=== PATIENT | female | born 1995 | race Caucasian/White ===

== ENCOUNTER 2016-07-28 15:25 | Emergency (ER) | payer OTHER ==
[~2016-07-28] VITALS: Ht 152.4 cm; Wt 64.6 kg
[2016-07-28 15:34] VITALS: BP 122/72
[2016-07-28] MEDS ORDERED: NACL 0.9% 500 ML IV ONE (15:47)
[2016-07-28] MEDS ORDERED: ONDANSETRON 4 MG/2 ML VIAL IVP ONE (15:50)
[2016-07-28] MEDS ORDERED: KETOROLAC 30 MG/ML VIAL IVP ONE (15:50)
--- NOTE | 2016-07-28 15:50 | NUR ---
Pt taken to bed 8. at bedside.
--- NOTE | 2016-07-28 15:52 | NUR ---
20/F presents to ED with c/o right upper abdominal pain that started today. Pt also c/o nausea, denies vomiting. Patient is crying,moaning, restless and guarding. Pt grabbing at her abdomen and crying in pain. Pt's states he took her ugent care today and had blood drawn and was discharged. Pt denies receiving any pain medication. Pt states she was referred to get an US done. Pt is 2 months post . Patient is AOX4, w/c assisted to bed 8. Pt left side lying. VSS. at bedside.
--- NOTE | 2016-07-28 16:02 | NUR ---
Ultrasound at bedside.
--- NOTE | 2016-07-28 16:07 | NUR ---
Pt is much more calm, pt no longer moaning or crying. Pt states she is feeling better. US at bedside. IV fluids running with no signs of infiltration, no redness, no swelling noted.
--- NOTE | 2016-07-28 16:17 | NUR ---
Dr. Small evaluating patient at bedside.
[2016-07-28] MEDS ORDERED: fentaNYL 0.05 MG/ML VIAL IVP ONE (16:25)
--- NOTE | 2016-07-28 16:45 | NUR ---
Patient appears to be resting comfortably in bed. Vital Signs within normal limits. Respirations even and unlabored.
--- NOTE | 2016-07-28 16:56 | NUR ---
IV removed, catheter intact and site benign. Applied folded 4x4 gauze and tape to stop bleeding.
--- NOTE | 2016-07-28 16:59 | NUR ---
Patient discharged with v/s stable. Written and verbal after care instructions given and explained. Patient alert, oriented and verbalized understanding of instructions. Ambulatory with steady gait. All questions addressed prior to discharge. ID band removed. Patient advised to follow up with PMD. Rx of ZOFRAN 4MG ODT AND NORCO 5/325MG TAB given. Patient educated on indication of medication including possible reaction and side effects. Opportunity to ask questions provided and answered.
[2016-07-28 17:00] VITALS: BP 108/54
== END 2016-07-28 16:59 | disposition home or self-care (01) ==
LOC: MED 15:25
DX: K80.20 Calculus of gallbladder without cholecystitis without obstruction (principal); R03.0 Elevated blood-pressure reading, without diagnosis of hypertension
CPT/HCPCS: 36415; 76705; 80053; 81002; 81025; 83690; 85025; 96361; 96374; 96375; 99285; J1885; J2405; J3010; J7030; Q0092

== ENCOUNTER 2021-10-04 03:13 | Emergency (ER) | payer OTHER ==
[~2021-10-04] VITALS: Ht 152.4 cm; Wt 81.4 kg
[2021-10-04 03:23] VITALS: BP 118/66
--- NOTE | 2021-10-04 03:28 | NUR ---
pt ambulatory to bed 05
--- NOTE | 2021-10-04 03:40 | NUR ---
25 Y/O F BIB SELF FOR BILAT SORE THROAT FOR 2/3 DAYS. THROAT FEELS DRY AND SCRATCHY. PT STATES BILAT EAR PAIN 4/10 PAIN. DENIES N/V/D; DENIES EAR DISCHARGE AND BLOOD IN THROAT. PT TOOK HALLS LOZENGES FOR RELIEF. PT STATES NO COUGH . SKIN IS PINK/WARM/DRY; AAOX4 WITH EVEN AND STEADY GAIT; LUNGS CLEAR BL; HR EVEN AND REGULAR; PT DENIES ANY FEVER, CP, SOB. PMH: DENIES ALLERGIES: NKA
--- NOTE | 2021-10-04 04:24 | NUR ---
Dr. Pacheco examining patient.
[2021-10-04 04:44] VITALS: BP 118/66
--- NOTE | 2021-10-04 04:44 | NUR ---
VERBAL DC BY
--- NOTE | 2021-10-04 04:44 | NUR ---
The patient's care was reviewed and supervised by Aidee King RN, RN.
== END 2021-10-04 04:44 | disposition home or self-care (01) ==
LOC: MED 03:13
DX: J02.9 Acute pharyngitis, unspecified (principal); H92.02 Otalgia, left ear
CPT/HCPCS: 99281

== ENCOUNTER 2022-01-06 03:35 | Emergency (ER) | payer OTHER ==
[~2022-01-06] VITALS: Ht 152.4 cm; Wt 81.6 kg
[2022-01-06 03:45] VITALS: BP 116/65
--- NOTE | 2022-01-06 03:52 | NUR ---
PT TAKEN TO BED 3
--- NOTE | 2022-01-06 04:02 | NUR ---
Dr. Painting examining patient.
[2022-01-06] MEDS ORDERED: SILVER SULFADIAZINE 1% 50 GM JAR TP ONE (04:10)
[2022-01-06] MEDS ORDERED: BACI-352 TP (04:47)
[2022-01-06] MEDS ORDERED: NAPR-54 PO (04:47)
[2022-01-06 04:59] VITALS: BP 118/72
--- NOTE | 2022-01-06 04:59 | NUR ---
Patient discharged with v/s stable. Written and verbal after care instructions given and explained by Dr. Painting. Patient alert, oriented and verbalized understanding of instructions. Ambulatory with steady gait. All questions addressed prior to discharge. ID band removed. Patient advised to follow up with PMD. Rx of Neosporin and Naprosyn given. Patient educated on indication of medication including possible reaction and side effects. Opportunity to ask questions provided and answered.
== END 2022-01-06 04:59 | disposition home or self-care (01) ==
LOC: MED 03:35
DX: T24.102A Burn of first degree of unspecified site of left lower limb, except ankle and foot, initial encounter (principal); T24.101A Burn of first degree of unspecified site of right lower limb, except ankle and foot, initial encounter; Z79.899 Other long term (current) drug therapy; X10.1XXA Contact with hot food, initial encounter; Y93.89 Activity, other specified; Y92.89 Other specified places as the place of occurrence of the external cause; Y99.0 Civilian activity done for income or pay
CPT/HCPCS: 16000; 16020; 90471; 90715; 99283

== ENCOUNTER 2022-04-05 06:09 | Emergency (ER) | payer OTHER ==
[~2022-04-05] VITALS: Ht 152.4 cm; Wt 77.1 kg
[~2022-04-05 06:09] MED LIST: BACI-352 TP; NAPR-54 PO
[2022-04-05 06:18] VITALS: BP 111/66
[2022-04-05] MEDS ORDERED: ACETAMINOPHEN EXTRA STRENGTH 500 MG TAB PO ONE (06:25)
[2022-04-05] MEDS ORDERED: ACETAMINOPHEN EXTRA STRENGTH 500 MG TAB ONE (06:25)
--- NOTE | 2022-04-05 06:25 | NUR ---
Dr. Odell examining patient.
--- NOTE | 2022-04-05 06:26 | NUR ---
COVID-19 and flu swabs collected and sent to lab.
[2022-04-05] MEDS ORDERED: TAM75 PO (08:16)
[2022-04-05 08:20] VITALS: BP 125/71
--- NOTE | 2022-04-05 08:20 | NUR ---
Patient discharged with v/s stable. Written and verbal after care instructions given and explained. Patient alert, oriented and verbalized understanding of instructions. Ambulatory with steady gait. All questions addressed prior to discharge. ID band removed. Patient advised to follow up with PMD. Rx of TAMIFLU given. Patient educated on indication of medication including possible reaction and side effects. Opportunity to ask questions provided and answered.
== END 2022-04-05 08:20 | disposition home or self-care (01) ==
LOC: MED 06:09
DX: J10.1 Influenza due to other identified influenza virus with other respiratory manifestations (principal); Z20.822 Contact with and (suspected) exposure to COVID-19; Z79.899 Other long term (current) drug therapy
CPT/HCPCS: 99283

== ENCOUNTER 2022-04-28 14:59 | Emergency (ER) | payer OTHER ==
[~2022-04-28] VITALS: Ht 152.4 cm; Wt 80.3 kg
[~2022-04-28 14:59] MED LIST changes: +TAM75 PO
[2022-04-28 15:33] VITALS: BP 112/79
--- NOTE | 2022-04-28 16:00 | NUR ---
26 Y/O FEMALE BIB SELF C/O SORE THROAT AND BILATERAL EAR ACHE X1 WEEK AND DISCHARGE FROM EYES X2DAYS, NOTED REDNESS ON THE CONJUNCTIVA AND YELLOW COLORED CRUST ON THE SIDE OF THE EYE. NKA PMH: DENIES
[2022-04-28] MEDS ORDERED: POLY10SO OP (16:40)
[2022-04-28] MEDS ORDERED: IBUP-2213 PO (16:40)
[2022-04-28] MEDS ORDERED: PRED20TA5 PO (16:40)
[2022-04-28] MEDS ORDERED: PROM118S5 PO (16:40)
--- NOTE | 2022-04-28 16:53 | NUR ---
Patient discharged with v/s stable. Written and verbal after care instructions given and explained. Patient alert, oriented and verbalized understanding of instructions. Ambulatory with steady gait. All questions addressed prior to discharge. ID band removed. Patient advised to follow up with PMD. Rx of MOTRIN, POLYTRIM EYE DROPS, DELTASONE, PROMETHAZINE DM given. Patient educated on indication of medication including possible reaction and side effects. Opportunity to ask questions provided and answered.
== END 2022-04-28 16:53 | disposition home or self-care (01) ==
LOC: MED 14:59
DX: J02.9 Acute pharyngitis, unspecified (principal); J06.9 Acute upper respiratory infection, unspecified; Z79.899 Other long term (current) drug therapy
CPT/HCPCS: 99283